=== PATIENT | female | born 1975 | race Caucasian/White ===

== ENCOUNTER 2016-11-23 05:37 | Day surgery (SDC) | payer OTHER ==
[~2016-11-23] VITALS: Ht 160 cm; Wt 52.8 kg
[~2016-11-23 05:37] MED LIST: ASPI-535 PO; HYDR-3498 PO; HYDR200T5 PO; IMU50 PO; OMEP40CA6 PO; RANI150T9 PO; SUCR1TAB56 PO
[2016-11-23 06:36] VITALS: Ht 160 cm; Wt 52.8 kg
[2016-11-23 07:10] VITALS: BP 98/53; PULSE 77; RESP 18
[2016-11-23] MEDS ORDERED: MIDAZOLAM 1 MG/ML 2 ML INJ ONE ×2 (07:40)
[2016-11-23] MEDS ORDERED: FENTAnyl 50 MCG/ML VIAL ONE (07:40)
[2016-11-23 07:55] VITALS: BP 99/55; PULSE 72; RESP 18
--- NOTE | 2016-11-23 10:40 | GILP ---
DATE OF PROCEDURE: NAME OF PROCEDURES: Esophagogastroduodenoscopy and biopsy. SURGEON: Elsie Parker MD PREOPERATIVE DIAGNOSIS: Abdominal pain. POSTOPERATIVE DIAGNOSES: 1. Gastroesophageal reflux disease. 2. Gastritis with erosions. 3. Gastric mucosal biopsies were taken for Helicobacter pylori test. INDICATION FOR THE PROCEDURE: Ms. Alma Campo is a 40-year-old female patient who had upper abdomina l pain, not responding to therapy. The patient was scheduled for endoscopic examination for further evaluation. The procedure and possible complications were well explained to the patient. The patient understood and consented to the procedure. DESCRIPTION OF PROCEDURE: Under the influence of fentanyl and Versed, the gastroscope was carefully introduced into the esophagus and under direct vision, it was advanced to the stomach and through t he pylorus into the duodenal bulb and descending duodenum. FINDINGS: ESOPHAGUS: The patient had gastroesophageal reflux disease. STOMACH: She had gastritis with erosions. Gastric mucosal biopsies were taken for H. pylori test. DUODENUM: Normal. She tolerated the procedure very well and there was no complication from the procedure. At the end of the procedures, she was awake with stable vital signs and she was discharged home to the care of her family. IMPRESSION: 1. Gastroesophageal reflux disease. 2. Gastritis with erosions. 3. Gastric mucosal biopsies were taken for Helicobacter pylori test. PLAN: 1. Continue omeprazole. 2. Add Zantac 300 mg p.o. at bedtime. 3. Await H. pylori test report. Dictated By: ELSIE GUZMAN/MICHI Conf#: [id number] DID#: [id number]
--- NOTE | 2016-11-24 05:35 | CONS ---
DATE OF ADMISSION: 11/23/2016 DATE OF CONSULTATION: 11/04/2016 TYPE OF CONSULTATION: PREOPERATIVE GASTROENTEROLOGY CONSULTATION Dear Dr. Bowens, I thank you very much for this kind referral. HISTORY OF PRESENT ILLNESS: Ms. Alma Campo is a 41-year-old female patient who has been referred to me for further evaluation of abdominal pain. The patient states she has got pain both in the upper part as well as the lower part of the abdomen. The patient had abdominal CT scan and she states th at it was negative. The patient has been taking Zantac and omeprazole without relief of the symptom s. There is no definite past history of peptic ulcer disease. She has been taking baby aspirin a d ay. She is status post a cholecystectomy. She does not have any fever, chills or jaundice. There is no history of liver disease. The patient denies any change in the bowel habit or rectal bleeding . There is no past history of inflammatory bowel disease or colon neoplasm. She is not a hypertens bhavna or diabetic. She does not have any heart disease or lung problem. There is no history of kidne y disease. She has history of lupus. SOCIAL HISTORY: She is a nonsmoker. She does not abuse alcohol. FAMILY HISTORY: Negative for gastrointestinal tract neoplasm. ALLERGIES: THERE IS NO HISTORY OF SIGNIFICANT DRUG ALLERGY. MEDICATIONS: 1. Omeprazole 20 mg. 2. Zantac 150 mg. 3. Azathioprine. 4. Hydroxychloroquine 5. Amitriptyline. 6. Aspirin 81 mg. PHYSICAL EXAMINATION: VITAL SIGNS: She is 5 feet 3 inches tall and she weighs 117 pounds. HEART: Examination of the heart reveals normal first and second heart sounds. LUNGS: Clear. ABDOMEN: Soft without any distention. Liver and spleen are not palpable. There are no masses. Th ere is no focal tenderness. Normal bowel sounds are heard. CENTRAL NERVOUS SYSTEM: Does not reveal any focal neurological deficit. IMPRESSION: 1. Upper abdominal pain, not responding to therapy with omeprazole and Zantac. 2. Lower abdominal pain. 3. The patient states she had abdominal CT scan done and it was negative. 4. The patient is on baby aspirin a day. 5. Status post cholecystectomy. 6. History of lupus. 7. The patient is on amitriptyline. PLAN: 1. Continue omeprazole and Zantac. 2. Endoscopic examination to rule out peptic ulcer disease. 3. The patient was advised to see her senior systems architect to make sure there is no problem with the pelvic organs. The procedure and possible complications are well explained to the patient. She understands and con sents to the procedure. I thank you once again. With warmest personal regards, Dictated By: ELSIE LAL MD GD/NTS Conf#: [id number] DID#: [id number] CC: ELSIE LAL MD;*EndCC*
== END 2016-11-23 09:44 | disposition home or self-care (01) ==
LOC: GIL 05:37
PROVIDERS: ATTEND Internal Medicine Gastroenterology
DX: K21.9 Gastro-esophageal reflux disease without esophagitis (principal); K29.60 Other gastritis without bleeding
CPT/HCPCS: 43239; 84703; 87081; J2250; J3010; Z7610

== ENCOUNTER 2018-11-26 05:59 | Day surgery (SDC) | payer OTHER ==
[~2018-11-26] VITALS: Ht 154.9 cm; Wt 54.5 kg
[~2018-11-26 05:59] MED LIST changes: +AZAT50TA31 PO; -HYDR-3498 PO; -IMU50 PO; -RANI150T9 PO; -SUCR1TAB56 PO
[2018-11-26 06:33] VITALS: Ht 154.9 cm; Wt 54.5 kg
[2018-11-26] MEDS ORDERED: [UNRECOGNIZED DRUG - REMARK] (06:58)
[2018-11-26] MEDS ORDERED: OMEPRAZOLE 20MG (06:58)
[2018-11-26] MEDS ORDERED: METHOTREXATE (06:58)
[2018-11-26] MEDS ORDERED: FOLIC ACID (06:58)
[2018-11-26] MEDS ORDERED: NORCO (06:58)
[2018-11-26] MEDS ORDERED: VITAMIN D (06:58)
[2018-11-26 07:24] VITALS: BP 117/68; PULSE 78; RESP 14
[2018-11-26 08:22] VITALS: BP 106/62; PULSE 67; RESP 20
--- NOTE | 2018-11-26 11:34 | CONS ---
DATE OF ADMISSION: 11/26/2018 DATE OF CONSULTATION: PATIENT NAME: ALMA CAMPO TYPE OF CONSULTATION: Preoperative gastroenterology. Dear Dr. Priest: I thank you very much for this kind referral. HISTORY OF PRESENT ILLNESS: Ms. Alma Campo is a 43-year-old female patient who has been referred to me for further evaluation of abdominal pain. The patient states she has got pain both in the upper p art as well as the lower part of the abdomen. She also has got chronic heartburn. The patient has b een taking omeprazole without much help. She has been taking [place] for the pain. Not on nonsteroida l anti-inflammatory agents. She is status post cholecystectomy. No history of liver disease. Denie s any change in the bowel habit or rectal bleeding. Not a hypertensive or diabetic. No heart diseas e, lung problem or kidney disease. She has lupus. SOCIAL HISTORY: Nonsmoker. No alcohol abuse. FAMILY HISTORY: No family history of gastrointestinal tract neoplasm. ALLERGIES: NO DRUG ALLERGIES. MEDICATIONS: 1. Methotrexate. 2. Omeprazole 20 mg. 3. [place]. PHYSICAL EXAMINATION: VITAL SIGNS: She is 5 feet, 2 inches tall and weighs 120 pounds. HEART: Normal heart sounds. LUNGS: Clear. ABDOMEN: Soft. No masses. Normal bowel sounds. NEUROLOGIC: Normal. IMPRESSION: 1. Upper abdominal pain and chronic heartburn, not responding to therapy with omeprazole. 2. Lower abdominal pain. 3. The patient has been taking [place] for the pain. 4. Lupus. 5. Status post cholecystectomy. PLAN: 1. Continue omeprazole. 2. Bentyl 10 mg p.o. t.i.d. p.r.n. for pain. 3. Abdominal and pelvic ultrasound and upper endoscopy for further evaluation. The procedure and possible complications are well explained to the patient. She understands and cons ents to the procedure. I thank you once again. With warmest personal regards, Dictated By: ELSIE GUZMAN/MICHI Conf#: [id number] DID#: [id number]
== END 2018-11-26 11:51 | disposition home or self-care (01) ==
LOC: GIL 05:59
PROVIDERS: ATTEND Internal Medicine Gastroenterology
DX: K44.9 Diaphragmatic hernia without obstruction or gangrene (principal); K21.9 Gastro-esophageal reflux disease without esophagitis; K29.30 Chronic superficial gastritis without bleeding; M32.9 Systemic lupus erythematosus, unspecified
CPT/HCPCS: 43239; 88305; 88312; Z7610

== ENCOUNTER 2019-01-07 06:02 | Day surgery (SDC) | payer OTHER ==
[~2019-01-07] VITALS: Ht 157.5 cm; Wt 54.1 kg
[2019-01-07] VITALS (11 sets, daily range): BP systolic 90–107; BP diastolic 51–63; PULSE 78–86; RESP 14–20; Ht 157.5 cm; Wt 54.1 kg
[~2019-01-07 06:02] MED LIST changes: -ASPI-535 PO; -AZAT50TA31 PO; +FOLIC ACID; -HYDR200T5 PO; +METHOTREXATE; +NORCO; -OMEP40CA6 PO; +OMEPRAZOLE 20MG; +VITAMIN D; +[UNRECOGNIZED DRUG - REMARK]
[2019-01-07] MEDS ORDERED: PROPOFOL 20 ML ONE (06:38)
[2019-01-07] MEDS ORDERED: CEFAZOLIN 1 GM INJ ONE (06:38)
[2019-01-07] MEDS ORDERED: MIDAZOLAM 1 MG/ML 2 ML INJ ONE (06:39)
[2019-01-07] MEDS ORDERED: ONDANSETRON 4 MG INJ ONE (06:39)
[2019-01-07] MEDS ORDERED: KETOROLAC 30 MG INJ ONE (06:39)
--- NOTE | 2019-01-07 06:58 | PREAC ---
Date/Time of Note Date/Time of Note DATE: 01/07/19 TIME: 06:56 Anesthesia Eval and Record Evaluation Time Pre-Procedure Interview DATE: 01/07/19 TIME: 06:56 Age 43 Sex female NPO: 8 hrs Preoperative diagnosis Breast Mass Planned procedure Excision of Breast Mass Past Medical History Past Medical History: Includes Surgery & Anesthesia Issues No known issue Meds Anticoagulation: No Beta Alvaro within 24 hr: No Reason Beta Alvaro not given: Pt. not on B-Alvaro Reported Medications [Unk Stomach Med] No Conflict Check 11/26/18 [[place]] No Conflict Check 11/26/18 [Omeprazole 20MG] No Conflict Check 11/26/18 [Vitamin D] No Conflict Check 11/26/18 [Folic Acid] No Conflict Check 11/26/18 [Methotrexate] No Conflict Check 11/26/18 Current Medications Cefazolin Sodium/ Dextrose 50 ml @ 100 mls/hr PRE-OP ONCE IVPB ; Start 01/07/19 at 10:00; Stop 01/07/19 at 10:29 Sodium Chloride 1,000 ml @ 75 mls/hr [id number] IV ; Start 01/07/19 at 10:00; Stop 01/07/19 at 23:19 Meds reviewed: Yes Allergies Coded Allergies: No Known Drug Allergies (Verified Allergy, Unknown, 11/23/16) Allergies Reviewed: Yes Labs/Studies Labs Reviewed: Reviewed by anesthesiologist test: Negative Pre-procedure Exam Airway: Adequate mouth opening Mallampati: Mallampati II Teeth: Normal Lung: Normal Heart: Normal ASA Physical Status ASA physical status: 2 Emergency: None Planned Anesthetic General/MAC: LMA Pre-operative Attestations Prior to commencing anesthesia and surgery, the patient was re-evaluated, there was verification of: *The patient's identity *The results of appropriate recent lab work and preoperative vital signs *The above evaluation not changing prior to induction *Anesthetic plan, risk benefits, alternative and complications discussed with patient/family; questions answered; patient/family understands, accepts and wishes to proceed. VIJI SARMIENTO MD Jan 07, 2019 06:58
[2019-01-07] MEDS ORDERED: DESFLURANE 15 MIN ONE (07:00)
[2019-01-07] MEDS ORDERED: SUCR1TAB56 PO (07:22)
[2019-01-07] MEDS ORDERED: METH25VI29 IJ (07:22)
[2019-01-07] MEDS ORDERED: DICY10CA40 ORAL (07:22)
[2019-01-07] MEDS ORDERED: CHOL100062 PO (07:22)
[2019-01-07] MEDS ORDERED: HYDR-4011 PO (07:22)
[2019-01-07] MEDS ORDERED: FOLI-49 PO (07:22)
[2019-01-07] MEDS ORDERED: OMEP20CA16 PO (07:22)
[2019-01-07] MEDS ORDERED: BUPIVACAINE 0.25%/EPI (SDV) 30 ML INJ ONE (07:26)
[2019-01-07] MEDS ORDERED: BUPIVACAINE 0.25%/EPI (SDV) 30 ML INJ INJ ONE (07:30)
--- NOTE | 2019-01-07 07:36 | HPN ---
Date/Time of Note Date/Time of Note DATE: 01/07/19 TIME: 07:36 Interval H&P Admission Note Pt. seen H&P reviewed: No system changes MARCO SHAFER MD Jan 07, 2019 07:36
[2019-01-07] MEDS ORDERED: ONDANSETRON 4 MG INJ IV PRN ×2 (08:30→09:00)
[2019-01-07] MEDS ORDERED: KETOROLAC 30 MG INJ IV PRN (08:30)
[2019-01-07] MEDS ORDERED: IBUPROFEN 600 MG TAB PO PRN (08:30)
--- NOTE | 2019-01-07 08:37 | OPR ---
Date/Time of Note Date/Time of Note DATE: 01/07/19 TIME: 08:28 Operative Report Procedure Date: Jan 07, 2019 Preoperative Diagnosis Left breast nodule Postoperative Diagnosis Left breast nodule Operation/Procedure Performed Excisional biopsy left breast nodule Surgeon see signature line National Recruiter None Anesthesia Type: general Anesthesiologist: VIJI SARMIENTO MD Estimated Blood Loss: minimal Transfusion none Specimen 1. Left breast nodule 2. Additional posterior tissue Grafts/Implants none Complications none Pt Condition Post Procedure: stable Disposition: PACU Indications Patient is a 43-year-old female who presented to the office after a left breast nodule was discovered by her primary care physician to whom she presented with complaints of left breast pain. The patient had an ultrasound and mammogram which were negative, however, the mass could be palpated on physical exam at the approximately 8:00 location of the left breast with the patient supine. Therefore, given the above findings the patient was scheduled for elective excisional biopsy of the left breast nodule for symptom relief and definitive pathological diagnosis. All risks and benefits of the procedure including, but not limited to: Wound infection, excessive bleeding, postoperative seroma/hematoma formation, possible need for subsequent surgeries, loss of nipple areolar sensation, nodule recurrence, etc. were explained to the patient in full detail. She fully understood and wished to proceed with the procedure. Informed consent was obtained. Procedure Description The patient was brought to the operating room and placed supine on the operating table. Bilateral sequential compression devices were placed on both lower extremities. A dose of broad-spectrum perioperative intravenous antibiotics was given. The mass which was located approximately the 8 to 9 o'clock position of the left breast with the patient supine was preoperatively marked and confirmed with the patient in the holding area. After the induction of smooth general anesthesia the patient's left breast and chest wall were prepped and draped in standard surgical fashion. After performance of the surgical timeout 0.25% Marcaine with epinephrine was injected around the area of the incision. An incision was then made using a 15 blade scalpel from approximately the 8:00 location to the 9:00 location of the left breast. Incision was carried down through the skin and subcutaneous tissues to the level of breast tissue using sharp dissection and Bovie electrocautery. Flaps were then raised circumferentially. The area of the breast nodule was palpated. It appeared to be fibro-cystic replacement of the breast tissue. Circumferential core of tissue was then dissected around the area. The specimen was then transected at its base. Marking sutures were used to otis the superior and lateral aspects. Specimen was then passed off the field. Posteriorly there is still appeared to be some fibrous nodularity replacement of the breast tissue. This was also excised, transected at its base, and passed off the field as specimen. Marking sutures were also used to otis the superior and lateral aspects of the excision. At this point hemostasis was inspected for and noted to be total. The wound cavity was irrigated and the irrigant returned clear. The wound was then closed in layers. The dermal layer was reapproximated with interrupted 3-0 Vicryl sutures. The skin was then reapproximated using a running 4-0 Monocryl suture in subcuticular fashion. Incision was cleaned and Dermabond was applied as well as sports bra. The patient was then awoken from anesthesia and transferred to the recovery room in stable condition. All counts were correct at the end of the case 2. MARCO SHAFER MD Jan 07, 2019 08:37
[2019-01-07] MEDS ORDERED: HYDROmorphONE 1 MG/5 ML IV SYRINGE IV PRN (09:00)
[2019-01-07] MEDS ORDERED: OXYCODONE/ACETAMINOPHEN (5/325) TAB PO PRN (09:00)
[2019-01-07] MEDS ORDERED: FENTAnyl 50 MCG/ML VIAL IV PRN (09:00)
[2019-01-07] MEDS ORDERED: SOD CHLORIDE 0.9% 1,000 ML IV SCH (10:00)
[2019-01-07] MEDS ORDERED: CEFAZOLIN 2 GM/50 ML (PMX) 50 ML IVPB ONE (10:00)
--- NOTE | 2019-01-07 10:54 | PAC ---
Date/Time of Note Date/Time of Note DATE: 01/07/19 TIME: 10:54 Post-Anesthesia Notes Post-Anesthesia Note Last documented vital signs Vital Signs Date Temp Pulse Resp B/P (MAP) Pulse Ox O2 O2 Flow FiO2 Time Delivery Rate 01/07/19 98.0 82 14 100/55 97 Room Air 09:15 (70) Activity: WNL Respiratory function: WNL Cardiovascular function: WNL Mental status: Baseline Pain reasonably controlled: Yes Hydration appropriate: Yes Nausea/Vomiting absent: Yes VIJI SARMIENTO MD Jan 07, 2019 10:54
== END 2019-01-07 10:21 | disposition home or self-care (01) ==
LOC: SDS 06:02
PROVIDERS: ATTEND Surgery
DX: N62 Hypertrophy of breast (principal); N63.0 Unspecified lump in unspecified breast
CPT/HCPCS: 19120; 88307; J0690; J1885; J2250; J2405; J3010; Z7512; Z7610